=== PATIENT | female | born 1960 | race Caucasian/White ===

== ENCOUNTER 2023-03-02 17:26 | Emergency (ER) | payer OTHER ==
[2023-03-02 17:36] VITALS: TEMP 98.2; BMI 34.2
[2023-03-02] MEDS ORDERED: diazePAM 5 MG TABLET PO ONE (19:09)
[2023-03-02] MEDS ORDERED: ACETAMINOPHEN 500 MG TABLET (FP) PO ONE (19:10)
[2023-03-02] MEDS ORDERED: ACETAMINOPHEN 500 MG TABLET (FP) ONE (19:30)
[2023-03-02] MEDS ORDERED: diazePAM 5 MG TABLET ONE (19:30)
[2023-03-02 19:59] VITALS: RESP 16
[2023-03-02] MEDS ORDERED: traMADol HCL 50 MG TABLET PO ONE (20:43)
[2023-03-02] MEDS ORDERED: traMADol HCL 50 MG TABLET ONE (20:48)
[2023-03-02 20:57] LABS: EPI CELLS 9 /uL (0-25.1); HYALINE CASTS 1 /uL (0-3.1); URINE APPEARANCE CLEAR; URINE BACTERIA 225 /uL (0-1359); URINE BILIRUBIN NEGATIVE (NEGATIVE); URINE COLOR YELLOW; URINE GLUCOSE (UA) NEGATIVE (NEGATIVE); URINE KETONE NEGATIVE (NEGATIVE); URINE LEUK ESTERASE 2+ (NEGATIVE); URINE NITRITE NEGATIVE (NEGATIVE); URINE PROTEIN NEGATIVE (NEGATIVE); URINE UROBILINOGEN 0.2 mg/dL (0.2-1.0); URINE WBC 116 /uL (0-25.8)
[2023-03-02 21:16] LABS: URINE RBC 27.3 /uL (0-23.9)
[2023-03-02 21:24] VITALS: BP 137/74; PULSE 60
[2023-03-02] MEDS ORDERED: KETOROLAC TROMETHAMINE 30 MG/1 ML VIAL ONE (21:24)
[2023-03-02] MEDS ORDERED: KETOROLAC TROMETHAMINE 15 MG/ML VIAL IM ONE (21:28)
== END 2023-03-02 22:32 | disposition home or self-care (01) ==
LOC: JERFT 17:26 → JER 17:26 → JERFT 22:32
PROC: 3E0233Z Introduction of Anti-inflammatory into Muscle, Percutaneous Approach (ICD-10-PCS; principal; 2023-03-02)
DX: M54.41 Lumbago with sciatica, right side (principal)
CPT/HCPCS: 72100-TC-FY; 74176-TC; 81003; 87077; 87086; 99285-25